=== PATIENT | female | born 1985 | race Caucasian/White ===

== ENCOUNTER 2017-09-17 12:51 | Outpatient (CLI) | payer BC ==
[2017-09-17] MEDS ORDERED: IOHEXOL 50 ML IV ONE (13:06)
== END 2017-09-17 20:07 | disposition home or self-care (01) ==
LOC: SRD 12:51
PROVIDERS: ATTEND Obstetrics & Gynecology
DX: N97.9 Female infertility, unspecified (principal)
CPT/HCPCS: 74740; C1751; Q9967

== ENCOUNTER 2019-11-10 17:21 | Inpatient (IN) | payer BC, SELFPAY ==
[~2019-11-10] VITALS: Ht 167.6 cm; Wt 99.8 kg
[2019-11-10] MEDS ORDERED: LR 1,000 ML IV SCH (17:48)
[2019-11-10] MEDS ORDERED: LR 1,000 ML IV ONE (17:48)
[2019-11-10] MEDS ORDERED: TERBUTALINE SULFATE 1 MG/ML VIAL SUBCUT ONE (18:00)
[2019-11-10 18:08] LABS: BASOPHILS % (AUTO) 0.5 % (0.0-2.0); EOSINOPHILS % (AUTO) 0.4 % (0.0-4.0); HEMATOCRIT 36.7 % (36-48); HEMOGLOBIN 12.4 g/dL (12.0-16.0); LYMPHOCYTES # (AUTO) 1.7 K/uL (1.0-5.5); MEAN CORPUSCULAR HEMOGLOBIN 29 pg (27-31); MEAN CORPUSCULAR HGB CONC 34 % (32-36); MEAN CORPUSCULAR VOLUME 85 fL (79.0-98.0); MONOCYTES # (AUTO) 0.5 K/uL (0.0-1.0); MONOCYTES % (AUTO) 8.3 % (1.7-9.3); NEUTROPHILS # (AUTO) 4.2 K/uL (1.8-7.7); NEUTROPHILS % (AUTO) 64.8 % (40.0-70.0); PLATELET COUNT (AUTO) 292 K/uL (130-430); RED BLOOD CELL COUNT(AUTO) 4.33 MIL/uL (4.2-6.2); RED CELL DISTRIBUTION WIDTH 14.1 % (9.0-15.0); WHITE BLOOD COUNT (AUTO) 6.5 K/uL (4.8-10.8)
[2019-11-10 18:45] LABS: CALCIUM 8.6 mg/dL (8.4-11.0); CREATININE 0.78 mg/dL (0.55-1.30); POTASSIUM 4.5 mmol/L (3.5-5.1)
[2019-11-10 18:51] LABS: ALBUMIN 2.1 g/dL (3.4-4.8); TOTAL BILIRUBIN 0.7 mg/dL (0.0-1.0)
[2019-11-10 20:18] LABS: BILIRUBIN,URINE NEGATIVE (NEGATIVE); BLOOD, URINE NEGATIVE (NEGATIVE); COLOR,URINE YELLOW (YELLOW); GLUCOSE,URINE NEGATIVE (NEGATIVE); KETONES,URINE NEGATIVE (NEGATIVE); LEUKOCYTE ESTERASE ,URINE NEGATIVE (NEGATIVE); NITRITE, URINE NEGATIVE (NEGATIVE); PROTEIN URINE TRACE (NEGATIVE); UROBILINOGEN,URINE 0.2 (0.2-1.0)
[2019-11-10 20:26] LABS: CLARITY/URINE SLIGHTLY HAZY (CLEAR)
[2019-11-10 20:41] LABS: BACTERIA,URINE MODERATE /HPF (None Seen); RBC,URINE 0-3 /HPF (0-3); WBC,URINE 0-3 /HPF (0-3)
[2019-11-10 20:42] LABS: MUCUS,URINE 1+ /LPF (None Seen)
[2019-11-10] MEDS ORDERED: TERBUTALINE SULFATE 1 MG/ML VIAL SUBCUT PRN (20:45)
[2019-11-10] MEDS ORDERED: DINOPROSTONE 10 MG SUPP VG ONE (20:45)
[2019-11-10] MEDS ORDERED: AMPICILLIN SODIUM 2 GM in NS 100 ML IV ONE (20:45)
[2019-11-10] MEDS: LR 1,000 ML IV SCH (21:01)
[2019-11-11] MEDS ORDERED: AMPICILLIN SODIUM 1 GM in NS 50 ML IV SCH (00:45)
[2019-11-11 07:22] VITALS: BP_SYST 124
[2019-11-11] MEDS ORDERED: DINOPROSTONE 10 MG SUPP VG ONE (09:45)
[2019-11-11] MEDS: LR 1,000 ML IV SCH ×2 (15:20→22:09)
[2019-11-11 17:50] LABS: ALBUMIN 2.1 g/dL (3.4-4.8); BILIRUBIN,DIRECT 0.4 mg/dL (0.0-0.3); TOTAL BILIRUBIN 0.8 mg/dL (0.0-1.0)
[2019-11-11] MEDS ORDERED: TEMAZEPAM 15 MG CAPSULE PO PRN (22:00)
[2019-11-12] MEDS: MORPHINE SULFATE 10 MG/ML VIAL IVP PRN ×2 (02:38→12:18)
[2019-11-12] MEDS ORDERED: LIDOCAINE TOPICAL OINT 5%, 35 GM TP PRN (08:00)
[2019-11-12] MEDS: OXYTOCIN/0.9 % SODIUM CHLORIDE 1,000 ML IV SCH (09:03)
[2019-11-12] MEDS: LR 1,000 ML IV SCH (22:18)
[2019-11-13] MEDS: OXYTOCIN/0.9 % SODIUM CHLORIDE 1,000 ML IV SCH ×2 (06:00→20:22)
[2019-11-13] MEDS: LR 1,000 ML IV SCH (08:06)
[2019-11-13] MEDS: MORPHINE SULFATE 10 MG/ML VIAL IVP PRN (08:06)
[2019-11-13] MEDS ORDERED: TERBUTALINE SULFATE 1 MG/ML VIAL SUBCUT ONE (10:08)
[2019-11-13] MEDS ORDERED: ROPIVACAINE HCL/PF 0.2% 200 ML ONE (15:44)
[2019-11-13] MEDS ORDERED: fentaNYL CITRATE/PF 100 MCG/2 ML AMP ONE (15:45)
[2019-11-13] MEDS ORDERED: LR 500 ML IV ONE (15:50)
[2019-11-13] MEDS ORDERED: AMPICILLIN SODIUM 2 GM in NS 100 ML IV ONE (16:00)
[2019-11-13] MEDS ORDERED: FENT2mCg/mL-ROPIVA0.2%/NS EPID 200 ML EP SCH (16:00)
[2019-11-13] MEDS: DIPHENHYDRAMINE INJ 50 MG/ML VIAL IVP PRN (16:05)
[2019-11-13] MEDS ORDERED: AMPICILLIN SODIUM 2 GM VIAL ONE (16:11)
[2019-11-13] MEDS ORDERED: DIPHENHYDRAMINE INJ 50 MG/ML VIAL IM ONE (17:15)
[2019-11-13] MEDS ORDERED: AMPICILLIN SODIUM 1 GM in NS 50 ML IV SCH (20:00)
[2019-11-13] MEDS ORDERED: CEFAZOLIN 2 GM IVPB PREMIX 50 ML IV ONE ×3 (21:30→22:01)
[2019-11-13] MEDS ORDERED: MORPHINE SULFATE 10MG/10ML PF AMP EP ONE (22:01)
[2019-11-13] MEDS ORDERED: NS IRRIG SOLN 1000 ML IR ONE (22:01)
[2019-11-13] MEDS ORDERED: BUPIVACAINE /PF 0.5% 30 ML VIAL INJ ONE (22:01)
[2019-11-13] MEDS ORDERED: LR 1,000 ML IV.SOLN IV ONE (22:01)
[2019-11-13] MEDS ORDERED: KETOROLAC TROMETHAMINE 60 MG/2 ML VIAL IM PRN (22:30)
[2019-11-13] MEDS ORDERED: MORPHINE SULFATE 10MG/10ML PF AMP EP SCH (22:30)
[2019-11-13] MEDS ORDERED: NALOXONE HCL 0.4 MG/ML AMP (NARCAN) IVP PRN ×3 (22:30→22:45)
[2019-11-13] MEDS ORDERED: fentaNYL CITRATE/PF 100 MCG/2 ML AMP IVP PRN ×2 (22:30)
[2019-11-13] MEDS ORDERED: DIPHENHYDRAMINE INJ 50 MG/ML VIAL IVP PRN (22:30)
[2019-11-13] MEDS ORDERED: NALBUPHINE HCL 10 MG/ML AMP IVP PRN (22:30)
[2019-11-13] MEDS ORDERED: ONDANSETRON HCL 4 MG/2 ML VIAL IVP PRN (22:30)
[2019-11-13] MEDS ORDERED: OXYTOCIN/0.9 % SODIUM CHLORIDE 1,000 ML IV SCH (22:45)
[2019-11-13] MEDS ORDERED: LR 1,000 ML IV SCH (22:45)
[2019-11-13] MEDS ORDERED: TEMAZEPAM 15 MG CAPSULE PO PRN (22:45)
[2019-11-13] MEDS ORDERED: LANOLIN 7 GM OINT. TP PRN (22:45)
[2019-11-13] MEDS ORDERED: RHO(D) IMMUNE GLOBULIN/MALTOSE 1500 UNITS/1.3 ML (WINHRO) IM PRN (22:45)
[2019-11-13] MEDS ORDERED: DIPH-TET-PERTUS Vaccine 0.5 ML VIAL (ADACEL) I.M. PRN (22:45)
[2019-11-13] MEDS ORDERED: HYDROcodone/ACETAMIN 5-325 MG TAB (NORCO/ VICODIN) PO PRN (22:45)
[2019-11-13] MEDS ORDERED: OXYCODONE/ACETAMINOPHEN 5-325 TABLET PO PRN (22:45)
[2019-11-13] MEDS ORDERED: ANUSOL 1 EA SUPP.RECT (PREPARATION H) RC PRN (22:45)
[2019-11-13] MEDS ORDERED: BISACODYL 10 MG/SUPPOSITORY RC PRN (22:45)
[2019-11-13] MEDS ORDERED: MEASLES,MUMPS&RUBELLA VACC/PF 12500 UNIT/0.5 ML VIAL SUBQ PRN (22:45)
[2019-11-13 22:53] VITALS: BP_SYST 133
[2019-11-14] MEDS: DIPHENHYDRAMINE INJ 50 MG/ML VIAL IVP PRN (01:15)
[2019-11-14] MEDS: CEFAZOLIN 1 GM IVPB PREMIX 50 ML IV SCH ×3 (04:00→16:23)
[2019-11-14 06:48] LABS: BASOPHILS # (AUTO) 0.1 K/uL (0.0-0.2); BASOPHILS % (AUTO) 0.8 % (0.0-2.0); EOSINOPHILS % (AUTO) 0.2 % (0.0-4.0); HEMATOCRIT 32.3 % (36-48); LYMPHOCYTES # (AUTO) 1.8 K/uL (1.0-5.5); LYMPHOCYTES % (AUTO) 17.8 % (20.5-51.5); MEAN CORPUSCULAR HEMOGLOBIN 29 pg (27-31); MEAN CORPUSCULAR HGB CONC 34 % (32-36); MEAN CORPUSCULAR VOLUME 85 fL (79.0-98.0); MONOCYTES # (AUTO) 0.8 K/uL (0.0-1.0); MONOCYTES % (AUTO) 7.8 % (1.7-9.3); NEUTROPHILS # (AUTO) 7.4 K/uL (1.8-7.7); NEUTROPHILS % (AUTO) 73.4 % (40.0-70.0); PLATELET COUNT (AUTO) 225 K/uL (130-430); RED BLOOD CELL COUNT(AUTO) 3.82 MIL/uL (4.2-6.2); RED CELL DISTRIBUTION WIDTH 14.2 % (9.0-15.0)
[2019-11-14] MEDS ORDERED: BUPIVACAINE /PF 0.5% 30 ML VIAL EP ONE (11:11)
[2019-11-14] MEDS: KETOROLAC TROMETHAMINE 30 MG VIAL IVP SCH ×2 (11:57→18:10)
[2019-11-14] MEDS: SENNOSIDES/DOCUSATE SODIUM 1 TAB TABLET(SENOKOT-S) PO PRN (18:07)
[2019-11-14] MEDS: DOCUSATE SODIUM 100 MG CAPSULE PO PRN (18:07)
[2019-11-14] MEDS: SIMETHICONE 80 MG TAB.CHEW PO PRN (18:08)
[2019-11-14] MEDS: OXYCODONE/ACETAMINOPHEN *10*mg/325 mg TABLET PO PRN (22:30)
[2019-11-15] MEDS: OXYCODONE/ACETAMINOPHEN *10*mg/325 mg TABLET PO PRN ×2 (01:41→05:38)
[2019-11-15] MEDS: IBUPROFEN 600 MG TABLET PO SCH ×5 (05:37→23:27)
[2019-11-15 07:36] LABS: BASOPHILS % (AUTO) 0.5 % (0.0-2.0); EOSINOPHILS % (AUTO) 0.5 % (0.0-4.0); HEMATOCRIT 31.5 % (36-48); HEMOGLOBIN 10.7 g/dL (12.0-16.0); LYMPHOCYTES # (AUTO) 2.2 K/uL (1.0-5.5); LYMPHOCYTES % (AUTO) 25.2 % (20.5-51.5); MEAN CORPUSCULAR HEMOGLOBIN 29 pg (27-31); MEAN CORPUSCULAR HGB CONC 34 % (32-36); MEAN CORPUSCULAR VOLUME 85 fL (79.0-98.0); MONOCYTES # (AUTO) 0.7 K/uL (0.0-1.0); MONOCYTES % (AUTO) 7.7 % (1.7-9.3); NEUTROPHILS # (AUTO) 5.7 K/uL (1.8-7.7); NEUTROPHILS % (AUTO) 66.1 % (40.0-70.0); PLATELET COUNT (AUTO) 243 K/uL (130-430); RED BLOOD CELL COUNT(AUTO) 3.69 MIL/uL (4.2-6.2); RED CELL DISTRIBUTION WIDTH 14.5 % (9.0-15.0); WHITE BLOOD COUNT (AUTO) 8.6 K/uL (4.8-10.8)
[2019-11-15 07:51] LABS: ALBUMIN 1.9 g/dL (3.4-4.8); CALCIUM 8.5 mg/dL (8.4-11.0); CREATININE 0.8 mg/dL (0.55-1.30); POTASSIUM 3.9 mmol/L (3.5-5.1); TOTAL BILIRUBIN 0.4 mg/dL (0.0-1.0)
[2019-11-15] MEDS: SIMETHICONE 80 MG TAB.CHEW PO PRN ×2 (12:18→18:15)
[2019-11-15] MEDS: DOCUSATE SODIUM 100 MG CAPSULE PO PRN (18:15)
[2019-11-15] MEDS: SENNOSIDES/DOCUSATE SODIUM 1 TAB TABLET(SENOKOT-S) PO PRN (18:15)
[2019-11-16] MEDS: IBUPROFEN 600 MG TABLET PO SCH ×4 (05:22→23:59)
[2019-11-16] MEDS: SIMETHICONE 80 MG TAB.CHEW PO PRN (23:59)
[2019-11-17] MEDS: SIMETHICONE 80 MG TAB.CHEW PO PRN (06:19)
[2019-11-17] MEDS: IBUPROFEN 600 MG TABLET PO SCH (06:20)
== END 2019-11-17 11:10 | disposition home or self-care (01) | DRG 786 ==
LOC: OBSVTOIN 17:21 → SPU 17:21
PROVIDERS: ADMIT Specialist; ATTEND Specialist
PROC: 10907ZC Drainage of Amniotic Fluid, Therapeutic from Products of Conception, Via Natural or Artificial Opening (ICD-10-PCS; 2019-11-10)
PROC: 3E033VJ Introduction of Other Hormone into Peripheral Vein, Percutaneous Approach (ICD-10-PCS; 2019-11-10)
PROC: 3E0P7VZ Introduction of Hormone into Female Reproductive, Via Natural or Artificial Opening (ICD-10-PCS; 2019-11-10)
PROC: 10D00Z1 Extraction of Products of Conception, Low, Open Approach (ICD-10-PCS; principal; 2019-11-16)
DX: O36.8130 Decreased fetal movements, third trimester, not applicable or unspecified (principal); K83.1 Obstruction of bile duct; O26.62 Liver and biliary tract disorders in childbirth; O62.2 Other uterine inertia; O32.4XX0 Maternal care for high head at term, not applicable or unspecified; O33.9 Maternal care for disproportion, unspecified; Z20.828 Contact with and (suspected) exposure to other viral communicable diseases; O69.81X0 Labor and delivery complicated by cord around neck, without compression, not applicable or unspecified; Z37.0 Single live birth; Z3A.36 36 weeks gestation of pregnancy
CPT/HCPCS: 36415; 76805-TC; 80053; 80076; 81000-TC; 82239; 85025; 86592; 86886; 86900; 86901; 87086; 94760; J0290; J0690; J1200; J1885; J2270; J2274; J2590; J3010; J3105; J3490; J7120